=== PATIENT | male | born 1990 | race Caucasian/White ===

== ENCOUNTER 2024-01-23 04:59 | Emergency (ER) | payer SELFPAY ==
[~2024-01-23] VITALS: Ht 167.6 cm; Wt 72.5 kg
[2024-01-23 05:08] VITALS: O2SAT 100
[2024-01-23 05:10] VITALS: BP 124/70; PULSE 87; RESP 18; TEMP 98.6; O2SAT 98
== END 2024-01-23 07:49 | disposition left against medical advice (07) ==
LOC: ER 05:59
DX: R07.89 Other chest pain (principal); Z53.21 Procedure and treatment not carried out due to patient leaving prior to being seen by health care provider
CPT/HCPCS: 71045; 93005

== ENCOUNTER 2024-01-25 01:53 | Emergency (ER) | payer MEDICAID ==
[~2024-01-25] VITALS: Ht 162.6 cm; Wt 70.0 kg
[2024-01-25 01:58] VITALS: O2SAT 99
[2024-01-25 02:11] VITALS: BP 112/61; PULSE 97; RESP 20; TEMP 98.3; O2SAT 99
[2024-01-25 03:07] LABS: BASOPHILS % 0.5 % (0.0-2.0); EOSINOPHILS % 1.5 % (0.0-5.0); HEMATOCRIT. 42.4 % (42.0-52.0); HEMOGLOBIN. 14.4 g/dL (14.0-18.0); LYMPHOCYTES % 17.5 % (20.0-50.0); MEAN CORPUSCULAR HEMOGLOBIN 29.1 pg (28.0-32.0); MEAN CORPUSCULAR HGB CONC 33.9 g/dL (31.0-37.0); MEAN CORPUSCULAR VOLUME 85.8 fL (80.0-94.0); MEAN PLATELET VOLUME 7.5 fl (7.4-10.4); MONOCYTES % 8.9 % (2.0-8.0); NEUTROPHILS % 71.6 % (40.0-76.0); PLATELET 333 x1000/uL (130-400); RED BLOOD CELL COUNT 4.95 mill/uL (4.7-6.1); RED CELL DISTRIBUTION WIDTH 14.7 % (11.6-14.6); WHITE BLOOD COUNT 8.9 x1000/uL (4.5-11.0)
[2024-01-25 03:11] LABS: CHLORIDE 110 mEq/L (98-107); SODIUM 144 mEq/L (136-145)
[2024-01-25 03:12] LABS: CALCIUM 8.9 mg/dL (8.7-10.4); CARBON DIOXIDE 30 mEq/L (21-32)
[2024-01-25 03:17] LABS: CREATININE 0.8 mg/dL (0.6-1.3); GLUCOSE 98 mg/dL (70-105); UREA NITROGEN BLOOD 16 mg/dL (9-23)
[2024-01-25 03:46] LABS: ETHANOL BLOOD < 10 mg/dL (<10)
[2024-01-25 03:47] LABS: TROPONIN I HIGH SENSITIVITY < 4 ng/L (3.0-53)
[2024-01-25] MEDS ORDERED: ACET-2708 MT (04:51)
== END 2024-01-25 05:06 | disposition left against medical advice (07) ==
LOC: ER 01:53
DX: F15.10 Other stimulant abuse, uncomplicated (principal); R07.89 Other chest pain
CPT/HCPCS: 36415; 71045; 80048; 80320; 84484; 85025; 93005; 99285; G0480

== ENCOUNTER 2024-01-25 15:02 | Emergency (ER) | payer MEDICAID ==
[~2024-01-25] VITALS: Ht 167.6 cm; Wt 70.0 kg
[~2024-01-25 15:02] MED LIST: ACET-2708 MT
[2024-01-25 15:13] VITALS: O2SAT 100
[2024-01-25 17:15] LABS: TROPONIN I HIGH SENSITIVITY < 4 ng/L (3.0-53)
[2024-01-25] MEDS: IBUPROFEN 600MG TABLET PO ONE (17:19)
[2024-01-25 18:00] VITALS: BP 136/76; PULSE 85; RESP 16; TEMP 36.66960; O2SAT 100
== END 2024-01-25 18:02 | disposition home or self-care (01) ==
LOC: ER 15:02
DX: R07.89 Other chest pain (principal); F15.10 Other stimulant abuse, uncomplicated
CPT/HCPCS: 36415; 71045; 84484; 93005; 99285

== ENCOUNTER 2024-02-02 16:43 | Emergency (ER) | payer MEDICAID ==
[~2024-02-02] VITALS: Ht 162.6 cm; Wt 71.0 kg
[2024-02-02 16:54] VITALS: TEMP 97.8; O2SAT 98
[2024-02-02 17:01] VITALS: BP 123/80; PULSE 120; RESP 16; O2SAT 100
== END 2024-02-02 17:50 | disposition left against medical advice (07) ==
LOC: ER 16:43
DX: R07.89 Other chest pain (principal); Z53.21 Procedure and treatment not carried out due to patient leaving prior to being seen by health care provider
CPT/HCPCS: 71045; 93005